=== PATIENT | male | born 1995 | race Hispanic/Latino ===

== ENCOUNTER 2018-06-11 12:02 | Emergency (ER) | payer MEDICAID, OTHER ==
[2018-06-11] MEDS ORDERED: KETOROLAC TROMETHAMINE 60 MG/2 ML VIAL ONE (12:46)
[2018-06-11] MEDS ORDERED: CYCLOBENZAPRINE HCL 10 MG TABLET ONE (12:46)
== END 2018-06-11 14:46 | disposition home or self-care (01) ==
LOC: EDH 12:02
DX: M54.5 Low back pain (principal); M54.2 Cervicalgia; M62.830 Muscle spasm of back; Z98.890 Other specified postprocedural states; V53.6XXA Passenger in pick-up truck or van injured in collision with car, pick-up truck or van in traffic accident, initial encounter; Y93.89 Activity, other specified; Y92.488 Other paved roadways as the place of occurrence of the external cause; Y99.8 Other external cause status
CPT/HCPCS: 72100; 96372; 99284; J1885

== ENCOUNTER 2019-05-07 02:31 | Emergency (ER) | payer OTHER | END 2019-05-07 02:58 | LOC: EDH 02:31 | DX: Z02.83 Encounter for blood-alcohol and blood-drug test (principal) ==